=== PATIENT | female | born 1965 | race Caucasian/White ===

== ENCOUNTER → 2019-02-25 | Outpatient (REF) | payer OTHER | LOC: M LAB REF 15:43 | PROVIDERS: ATTEND Nurse Practitioner Family | DX: N39.0 Urinary tract infection, site not specified (principal) ==

== ENCOUNTER → 2021-12-21 | Outpatient (REF) | LOC: M LAB 11:30 | PROVIDERS: ATTEND Nurse Practitioner Adult Health | DX: Z02.89 Encounter for other administrative examinations (principal) ==

== ENCOUNTER → 2022-01-10 | Outpatient (REF) | LOC: M LABSMTC 11:47 | PROVIDERS: ATTEND Family Medicine | DX: Z20.822 Contact with and (suspected) exposure to COVID-19 (principal); Z11.52 Encounter for screening for COVID-19 ==

== ENCOUNTER → 2023-03-29 | Outpatient (REF) ==
[2023-03-29 08:50] LABS: RSV AMPLIFICATION NEGATIVE (NEGATIVE)
== END ==
LOC: M EMP 07:34
PROVIDERS: ATTEND Family Medicine
DX: Z11.52 Encounter for screening for COVID-19 (principal)

== ENCOUNTER → 2023-06-02 | Outpatient (REF) | payer OTHER, BC ==
[2023-06-02 18:44] LABS: PERCENT SATURATION 30.6 % (13.2-45.0)
[2023-06-02 18:48] LABS: FERRITIN 20.9 NG/ML (7.3-270.7)
== END ==
LOC: M LAB REF 17:56
PROVIDERS: ATTEND Internal Medicine
DX: D64.9 Anemia, unspecified (principal)

== ENCOUNTER 2023-09-21 07:15 | Day surgery (SDC) | payer BC ==
[~2023-09-21] VITALS: Ht 170.7 cm; Wt 67.9 kg
[~2023-09-21 07:15] MED LIST: HYDR-3363 PO; LEVO100T5 PO; NORT50CA PO; SYMB80INH INH
[2023-09-21] MEDS: NS 1,000 ML IV ONE (07:41)
[2023-09-21] MEDS ORDERED: propofoL 200 MG/20 ML VIAL As Ordered ONE (08:38)
[2023-09-21] MEDS ORDERED: ONDANSETRON 4MG 2ML VIAL As Ordered ONE (08:41)
[2023-09-21 08:57] VITALS: TEMP 97.7
[2023-09-21 09:15] VITALS: BP 142/82; O2SAT 100
== END 2023-09-21 09:20 | disposition home or self-care (01) ==
LOC: M OPP 07:15
PROVIDERS: ATTEND Surgery
DX: Z12.11 Encounter for screening for malignant neoplasm of colon (principal); Z86.010 Personal history of colon polyps; K57.30 Diverticulosis of large intestine without perforation or abscess without bleeding; E03.9 Hypothyroidism, unspecified; J45.909 Unspecified asthma, uncomplicated; Z79.51 Long term (current) use of inhaled steroids; Z79.890 Hormone replacement therapy; Z79.899 Other long term (current) drug therapy; Z88.1 Allergy status to other antibiotic agents
CPT/HCPCS: 45378; J2405

== ENCOUNTER → 2023-10-25 | Outpatient (REF) | payer BC ==
[2023-10-27 15:37] LABS: HPV APTIMA Not Detected (Not Detected)
== END ==
LOC: M SFHCWAGY 12:24
PROVIDERS: ATTEND Nurse Practitioner Family
DX: Z01.419 Encounter for gynecological examination (general) (routine) without abnormal findings (principal); Z11.51 Encounter for screening for human papillomavirus (HPV); Z77.9 Other contact with and (suspected) exposures hazardous to health
CPT/HCPCS: 87624; G0123

== ENCOUNTER → 2023-10-25 | Outpatient (CLI) | payer BC, OTHER | LOC: M WHC 07:15 | PROVIDERS: ATTEND Nurse Practitioner Family | DX: Z12.31 Encounter for screening mammogram for malignant neoplasm of breast (principal); Z53.9 Procedure and treatment not carried out, unspecified reason ==

== ENCOUNTER 2023-11-24 22:52 | Emergency (ER) | payer BC ==
[~2023-11-24] VITALS: Ht 170.2 cm; Wt 72.5 kg
[2023-11-24 22:52] VITALS: BP 170/78; TEMP 97.3; O2SAT 100
[2023-11-25 00:19] LABS: LIPASE 64 U/L (12-53)
[2023-11-25 00:21] LABS: ALBUMIN 3.8 G/DL (3.2-5.2); ALKALINE PHOSPHATASE 115 U/L (46-116); ALT/SGPT 27 U/L (7.0-40); AST/SGOT 33 U/L (<34); BILIRUBIN,DIRECT < 0.1 MG/DL (<0.4); BILIRUBIN,TOTAL 0.3 MG/DL (0.3-1.2); BLOOD UREA NITROGEN 22 MG/DL (9-23); CARBON DIOXIDE LEVEL 26 MMOL/L (20-31); CHLORIDE LEVEL 104 MMOL/L (98-107); CK-MB VALUE MASS 1.4 NG/ML (<3.6); CREATININE FOR GFR 1.31 MG/DL (0.55-1.30); GLOMERULAR FILTRATION RATE 44.1 (>45); GLUCOSE, FASTING 98 MG/DL (74-106); POTASSIUM SERUM 4.9 MMOL/L (3.5-5.1); SODIUM LEVEL 133 MMOL/L (136-145); TOTAL PROTEIN 7.1 G/DL (5.7-8.2)
[2023-11-25 00:23] LABS: CPK CREATINE PHOSPHOKINASE 231 U/L (34-145)
== END 2023-11-25 00:30 | disposition left against medical advice (07) ==
LOC: M ED 22:52
DX: Z53.21 Procedure and treatment not carried out due to patient leaving prior to being seen by health care provider (principal)

== ENCOUNTER → 2023-11-28 | Outpatient (REF) | LOC: M EMP 09:41 | PROVIDERS: ATTEND Family Medicine | DX: Z11.52 Encounter for screening for COVID-19 (principal) ==

== ENCOUNTER → 2023-12-08 | Outpatient (REF) | payer BC ==
[2023-12-08 18:48] LABS: IRON (FE) 66 UG/DL (50-170); PERCENT SATURATION 17.5 % (13.2-45.0); TOTAL IRON BINDING CAPACITY 378 UG/DL (250-425)
[2023-12-08 18:51] LABS: VITAMIN B12 LEVEL > 2000 PG/ML (211-911)
== END ==
LOC: M LAB REF 17:19
PROVIDERS: ATTEND Internal Medicine
DX: D64.9 Anemia, unspecified (principal)

== ENCOUNTER → 2024-04-25 | Outpatient (REF) | payer BC ==
[2024-04-25 14:15] LABS: CORTISOL AM 12.8 UG/DL (4.3-22.4)
[2024-04-25 14:19] LABS: PHOSPHORUS LEVEL 3.7 MG/DL (2.4-5.1)
== END ==
LOC: M LAB REF 12:59
PROVIDERS: ATTEND Internal Medicine
DX: R63.5 Abnormal weight gain (principal); E03.9 Hypothyroidism, unspecified

== ENCOUNTER → 2024-05-29 | Outpatient (REF) | payer BC ==
[2024-05-29 20:19] LABS: % LABILE ALKALINE PHOSPHATASE 48 %; LABILE ALKPHOS 64 U/L; STABLE ALKPHOS 60 U/L
== END ==
LOC: M LAB REF 17:29
PROVIDERS: ATTEND Internal Medicine
DX: R74.8 Abnormal levels of other serum enzymes (principal)

== ENCOUNTER → 2024-07-05 | Outpatient (REF) | payer BC ==
[2024-07-05 13:34] LABS: PERCENT SATURATION 25.5 % (13.2-45.0)
[2024-07-05 13:37] LABS: FERRITIN 15.8 NG/ML (7.3-270.7)
== END ==
LOC: M LAB REF 11:56
PROVIDERS: ATTEND Internal Medicine
DX: R10.9 Unspecified abdominal pain (principal); D64.9 Anemia, unspecified

== ENCOUNTER → 2024-08-02 | Outpatient (CLI) | payer BC | LOC: M PLAIMG 11:57 | PROVIDERS: ATTEND Physician Assistant Surgical | DX: M19.072 Primary osteoarthritis, left ankle and foot (principal); M76.62 Achilles tendinitis, left leg ==

== ENCOUNTER 2024-10-06 12:57 | Emergency (ER) | payer BC ==
[~2024-10-06] VITALS: Ht 170.2 cm; Wt 66.5 kg
[2024-10-06] MEDS ORDERED: BACL10TA2 (13:08)
[2024-10-06] MEDS ORDERED: FLUO-290 (13:08)
[2024-10-06] MEDS ORDERED: LEVO137T2 (13:08)
[2024-10-06] MEDS ORDERED: ESTR10TA (13:08)
[2024-10-06] MEDS: KETOROLAC 30 MG/ML 1 ML VIAL IV ONE (17:17)
[2024-10-06] MEDS: NS (Normal Saline) 0.9% 1,000 ML IV ONE (17:17)
[2024-10-06 17:38] LABS: BASO # 0.1 10^3/uL (0.0-0.2); BASO % 1.2 % (0.0-1.0); EOS # 0.5 10^3/uL (0.0-0.5); EOS % 7.3 % (0.0-3.0); LYMPH # 2.2 10^3/uL (1.5-5.0); LYMPH % 33.2 % (24.0-44.0); MONO # 0.5 10^3/uL (0.0-0.8); MONO % 8.1 % (2.0-8.0); NEUTROPHILS # 3.3 10^3/uL (1.5-8.5); NEUTROPHILS % 49.9 % (36.0-66.0); PLATELET COUNT, AUTOMATED 347 10^3/uL (150-450)
[2024-10-06 17:44] LABS: KETONE, URINE AUTO RFX NEGATIVE (NEGATIVE); LEUKOCYTE ESTERASE UR AUTO RFX 3+ (NEGATIVE); NITRITE, URINE AUTO RFX NEGATIVE (NEGATIVE); RBC, URINE AUTO RFX 1 /HPF (0-3); SQUAM EPITHELIAL CELL UR AURFX 1 /HPF (0-6); WBC, URINE AUTO RFX 12 /HPF (0-3)
[2024-10-06 17:50] LABS: ERYTHROCYTE SEDIMENTATION RATE 25 mm/hr (0-30)
[2024-10-06 18:10] LABS: C REACTIVE PROTEIN QUANTITATIV < 0.50 MG/DL (<1.0); CALCIUM LEVEL 9.0 MG/DL (8.3-10.6); CARBON DIOXIDE LEVEL 29 MMOL/L (20-31); CHLORIDE LEVEL 100 MMOL/L (98-107); CREATININE FOR GFR 1.35 MG/DL (0.55-1.30); GLOMERULAR FILTRATION RATE 44.7 (>45); POTASSIUM SERUM 4.9 MMOL/L (3.5-5.1); SODIUM LEVEL 138 MMOL/L (136-145)
[2024-10-06 18:15] VITALS: BP 118/57; O2SAT 99
[2024-10-06 18:30] VITALS: TEMP 98.6
[2024-10-06] MEDS ORDERED: CEFD300C PO (18:32)
[2024-10-06] MEDS: CEFDINIR 300 MG CAP PO ONE (18:45)
== END 2024-10-06 18:51 | disposition home or self-care (01) ==
LOC: M ED 12:57
DX: N39.0 Urinary tract infection, site not specified (principal); R51.9 Headache, unspecified; E03.9 Hypothyroidism, unspecified; Z79.2 Long term (current) use of antibiotics; Z79.899 Other long term (current) drug therapy
CPT/HCPCS: 70450; 80048; 81001; 83605; 85025; 85652; 86140; 87040; 87086; 96361; 96374; 99284; J1885; J2765

== ENCOUNTER 2024-10-09 22:43 | Emergency (ER) | payer BC ==
[~2024-10-09] VITALS: Ht 170.2 cm; Wt 66.0 kg
[~2024-10-09 22:43] MED LIST changes: -REGL10TA6 PO
[2024-10-10 00:52] LABS: BASO # 0.1 10^3/uL (0.0-0.2); BASO % 0.8 % (0.0-1.0); EOS # 0.3 10^3/uL (0.0-0.5); EOS % 3.5 % (0.0-3.0); LYMPH # 1.7 10^3/uL (1.5-5.0); LYMPH % 19.6 % (24.0-44.0); MONO # 0.4 10^3/uL (0.0-0.8); MONO % 5.1 % (2.0-8.0); NEUTROPHILS # 6.2 10^3/uL (1.5-8.5); NEUTROPHILS % 70.8 % (36.0-66.0); PLATELET COUNT, AUTOMATED 344 10^3/uL (150-450)
[2024-10-10 01:23] LABS: ALT/SGPT 19 U/L (7.0-40); AST/SGOT 45 U/L (<34)
[2024-10-10 02:24] LABS: CALCIUM LEVEL 9.2 MG/DL (8.3-10.6); CARBON DIOXIDE LEVEL 24 MMOL/L (20-31); CHLORIDE LEVEL 96 MMOL/L (98-107); CREATININE FOR GFR 1.25 MG/DL (0.55-1.30); GLOMERULAR FILTRATION RATE 49.0 (>45); POTASSIUM SERUM 5.2 MMOL/L (3.5-5.1); SODIUM LEVEL 132 MMOL/L (136-145)
[2024-10-10] MEDS: NS (Normal Saline) 0.9% 1,000 ML IV ONE (04:42)
[2024-10-10] MEDS ORDERED: ISOVUE-370 76% 100 ML VIAL As Ordered ONE (04:42)
[2024-10-10] MEDS: KETOROLAC 30 MG/ML 1 ML VIAL IV ONE (04:42)
[2024-10-10] MEDS: LevoFLOXacin IV 500 MG in IV 1 EA IV ONE (05:32)
[2024-10-10] MEDS ORDERED: REGL10TA6 PO (08:29)
[2024-10-10] MEDS: ACETAMINOPHEN *IV* 1,000 MG in IV 1 EA IV ONE (08:40)
[2024-10-10 09:05] VITALS: BP 121/59; TEMP 97.8; O2SAT 99
== END 2024-10-10 09:04 | disposition home or self-care (01) ==
LOC: M ED 22:43
DX: R51.9 Headache, unspecified (principal); R11.10 Vomiting, unspecified; R16.0 Hepatomegaly, not elsewhere classified; J98.11 Atelectasis; K44.9 Diaphragmatic hernia without obstruction or gangrene; K57.30 Diverticulosis of large intestine without perforation or abscess without bleeding; Z79.899 Other long term (current) drug therapy; Z88.8 Allergy status to other drugs, medicaments and biological substances
CPT/HCPCS: 74176; 80047; 80048; 80076; 81001; 83690; 85025; 87086; 93041; 96365; 96366; 96375; 99284; J0131; J1885; J1956; J2765

== ENCOUNTER → 2024-10-09 | Outpatient (REF) | payer BC ==
[~2024-10-09] MED LIST changes: +BACL10TA2; +CEFD300C PO; +ESTR10TA; +FLUO-290; +LEVO137T2; +REGL10TA6 PO
[2024-10-09 17:54] LABS: APPEARANCE, URINE CLEAR (CLEAR); BACTERIA, URINE AUTO 1+ (NEGATIVE); BILIRUBIN, URINE AUTO NEGATIVE (NEGATIVE); BLOOD, URINE BLOOD NEGATIVE (NEGATIVE); GLUCOSE, URINE (UA) AUTO NEGATIVE (NEGATIVE); KETONE, URINE AUTO NEGATIVE (NEGATIVE); LEUKOCYTE ESTERASE, URINE AUTO TRACE (NEGATIVE); NITRITE, URINE AUTO NEGATIVE (NEGATIVE); PROTEIN, URINE AUTO NEGATIVE (NEGATIVE); RBC, URINE AUTO 0 /HPF (0-3); SPECIFIC GRAVITY URINE AUTO 1.009 (1.002-1.035); SQUAMOUS EPITHELIAL CELL UR AU 0 /HPF (0-6); UROBILINOGEN, URINE AUTO 0.2 mg/dL (0.0-2.0); WBC, URINE AUTO 0 /HPF (0-3)
== END ==
LOC: M LAB REF 17:24
PROVIDERS: ATTEND Internal Medicine
DX: N39.0 Urinary tract infection, site not specified (principal)

== ENCOUNTER → 2024-11-06 | Outpatient (REF) | payer BC ==
[~2024-11-06] MED LIST changes: +REGL10TA6 PO
[2024-11-06 10:46] LABS: BASO # 0.1 10^3/uL (0.0-0.2); BASO % 1.0 % (0.0-1.0); EOS # 0.4 10^3/uL (0.0-0.5); EOS % 4.9 % (0.0-3.0); LYMPH # 2.3 10^3/uL (1.5-5.0); LYMPH % 29.5 % (24.0-44.0); MONO # 0.6 10^3/uL (0.0-0.8); MONO % 7.6 % (2.0-8.0); NEUTROPHILS # 4.5 10^3/uL (1.5-8.5); NEUTROPHILS % 56.9 % (36.0-66.0); PLATELET COUNT, AUTOMATED 335 10^3/uL (150-450)
[2024-11-06 11:32] LABS: CALCIUM LEVEL 9.3 MG/DL (8.3-10.6); CARBON DIOXIDE LEVEL 27.0 MMOL/L (20-31); CHLORIDE LEVEL 103.0 MMOL/L (98-107); CREATININE FOR GFR 1.27 MG/DL (0.55-1.30); GLOMERULAR FILTRATION RATE 48.1 (>45); POTASSIUM SERUM 4.6 MMOL/L (3.5-5.1); SODIUM LEVEL 141.0 MMOL/L (136-145)
[2024-11-06 11:34] LABS: IRON (FE) 67.0 UG/DL (50-170); PERCENT SATURATION 18.4 % (13.2-45.0)
== END ==
LOC: M LAB REF 10:22
PROVIDERS: ATTEND Internal Medicine
DX: E03.9 Hypothyroidism, unspecified (principal); R53.83 Other fatigue; R63.5 Abnormal weight gain

== ENCOUNTER 2024-12-21 15:06 | Emergency (ER) | payer BC ==
[~2024-12-21] VITALS: Ht 170.2 cm; Wt 65.9 kg
[2024-12-21] MEDS: ACETAMINOPHEN 500 MG TAB PO ONE (16:43)
[2024-12-21 18:11] VITALS: BP 111/66; TEMP 98.1; O2SAT 100
== END 2024-12-21 19:05 | disposition home or self-care (01) ==
LOC: M ED 15:06
DX: S93.621A Sprain of tarsometatarsal ligament of right foot, initial encounter (principal); S93.411A Sprain of calcaneofibular ligament of right ankle, initial encounter; X50.0XXA Overexertion from strenuous movement or load, initial encounter; R51.9 Headache, unspecified; E03.9 Hypothyroidism, unspecified; Y92.410 Unspecified street and highway as the place of occurrence of the external cause; Y93.01 Activity, walking, marching and hiking; Y99.9 Unspecified external cause status; Z88.8 Allergy status to other drugs, medicaments and biological substances; Z79.899 Other long term (current) drug therapy